=== PATIENT | female | born 1955 | race Caucasian/White ===

== ENCOUNTER 2020-07-18 13:36 | Inpatient (IN) | payer OTHER ==
[2020-07-18] VITALS (7 sets, daily range): BP systolic 125–146; BP diastolic 48–81
[~2020-07-18] VITALS: Ht 147.3 cm; Wt 82.1 kg
[~2020-07-18 13:36] MED LIST: CLIMARA0.0375 MG TRANSDERM; DARVOCET-N 1001 EAC1 PO; EVAMIST8.1 ML TD; LORTAB 5 MG/5001 TAB PO; NORCO 5-325 TA1 EACH PO; PROVERA2.5 MG PO
[2020-07-18 14:21] LABS: ABSOLUTE NEUTROPHILS 5.6 thou/uL (1.4-8.2); BASOPHILS 1.3 % (0.0-2.0); EOSINOPHILS 1.2 % (0.0-3.0); LYMPHOCYTES 15.7 % (24.0-44.0); MCH 19.2 pg (26.0-34.0); MCHC 29.3 g/dL (28.0-37.0); MCV 65.4 fL (80.0-100.0); MONOCYTES 6.2 % (1.0-8.0); PLATELET COUNT 563 thou/uL (150-400); POLYS 75.6 % (36.0-66.0); RBC 2.64 mil/uL (4.20-5.00); RDW 19.2 % (10.5-14.5); WBC 7.3 thou/uL (4.0-11.0)
[2020-07-18 14:24] LABS: HEMATOCRIT 17.3 % (37.0-47.0); HEMOGLOBIN 5.1 gm/dL (12.0-15.0)
[2020-07-18 14:46] LABS: ANISOCYTOSIS 2+; CALCIUM 9.4 mg/dL (8.5-10.1); HYPOCHROMASIA 3+; MICROCYTES 2+; POTASSIUM 4.1 mmol/L (3.5-5.1)
[2020-07-18] MEDS ORDERED: VITAMIN C500 M2 PO (14:50)
[2020-07-18 14:51] LABS: ALBUMIN 3.3 g/dL (3.4-5.0); TOTAL BILIRUBIN 0.3 mg/dL (0.2-1.0); TOTAL PROTEIN 6.9 g/dL (6.4-8.2)
[2020-07-18 15:29] LABS: OBSERVED RETIC COUNT 3.29 % (0.6-2.6)
[2020-07-18 15:31] LABS: % SATURATION 2 % (20-39); IRON 8 ug/dL (50-170); TIBC 349 ug/dL (250-450)
[2020-07-18 15:58] LABS: TSH 1.455 uIU/mL (0.358-3.740)
[2020-07-18 16:25] LABS: FOLIC ACID 36.1 ng/mL (8.6-58.9)
--- NOTE | 2020-07-18 19:39 | NUR ---
Admitted from ER due to weakness, fatigue and low hemoglobin; transferred to room safely. A+Ox4. On room air. Vital signs stable. Admission history, education and assessment done; admission forms signed. On MS, not on telemetry. On regular diet- tolerated well, no nausea, no vomiting and no abdominal pain noted. Skin intact. With SL at R AC- intact and flushing well. Falls bundle in place. Continent of bowel and bladder, able to go to the toilet with standby assist. No complaints of chest pain, crushing sensation and heaviness. With order for 2 units packed RBC for transfusion, called blood bank- 2 units available; consent signed from ER. 1st unit blood transfusion started as per protocol, pt educated re: adverse reactions of blood transfusion- to be reported to staff if she is feeling any of it. retail shift manager nurse informed re: ongoing 1st unit blood transfusion, time started, 2unit blood available at blood bank, ordered Iron sucrose not yet given- prioritized blood transfusion for now. To continue monitoring patient.
[2020-07-19 04:01] VITALS: BP 143/65
--- NOTE | 2020-07-19 04:16 | NUR ---
PATIENT ALERT AND ORIENTED X4. THIS NURSE FINISHED FIRST UNIT OF BLOOD FROM THE AM AND INFUSED THE SECOND UNIT OF BLOOD ON THE FREELANCE WRITER. PATIENT UP WITH SBA IN ROOM. MEDIUM STOOL OVERNIGHT. DENIES PAIN. COOPERATIVE AND PLEASANT. WILL MONITOR.
[2020-07-19 05:31] LABS: MCH 22.4 pg (26.0-34.0); MCHC 31.8 g/dL (28.0-37.0); RBC 3.41 mil/uL (4.20-5.00); RDW 23.2 % (10.5-14.5); WBC 7.9 thou/uL (4.0-11.0)
[2020-07-19 05:46] LABS: HEMOGLOBIN 7.6 gm/dL (12.0-15.0); MCV 70.5 fL (80.0-100.0)
[2020-07-19 06:11] LABS: ALBUMIN 2.9 g/dL (3.4-5.0); CALCIUM 8.7 mg/dL (8.5-10.1); CREATININE 0.9 mg/dL (0.6-1.0); POTASSIUM 4.1 mmol/L (3.5-5.1); TOTAL BILIRUBIN 0.6 mg/dL (0.2-1.0); TOTAL PROTEIN 6.2 g/dL (6.4-8.2)
[2020-07-19 07:21] VITALS: BP 144/68
[2020-07-19 10:16] VITALS: BP 144/68
[2020-07-19 11:22] LABS: URINE BILIRUBIN NEGATIVE (Negative); URINE BLOOD NEGATIVE (Negative); URINE CLARITY CLEAR; URINE COLOR YELLOW; URINE GLUCOSE-RANDOM* NEGATIVE (Negative); URINE KETONES NEGATIVE (Negative); URINE NITRITE-REFLEX NEGATIVE (Negative); URINE PROTEIN (DIPSTICK) NEGATIVE (Negative); URINE SPECIFIC GRAVITY 1.015 (1.005-1.035); URINE UROBILINOGEN 0.2 E.U./dl (0.2-1.0)
[2020-07-19 11:24] LABS: URINE LEUKOCYTES-REFLEX 1+ (Negative)
--- NOTE | 2020-07-19 13:16 | NUR ---
Received awake on bed. Due medications given as prescribed. A+Ox4. On room air. Vital signs stable. Assisted in ADLs. Not on telemetry, no complaints of chest pain, crushing sensation and heaviness. Continent of bowel and bladder, able to go to the toilet with standby assist and gait belt. With SL at R AC, on IV iron- given as prescribed. On regular diet- tolerating well; no nausea, no vomiting and no abdominal pain noted. Falls bundle in place. Pt seen and examined by Dr Matias, discharge orders made- pt informed. Discharge instructions and follow up schedule given and instructed. Discharge forms signed. IV discontinued. Pt discharged from the unit with her personal belongings via wheelchair. Pt discharged.
[2020-07-19 13:21] LABS: CASTS None Seen /LPF (None Seen); SQUAMOUS 0-3 Few /LPF (0-3)
[2020-07-19 13:22] LABS: BACTERIA-REFLEX None Seen /HPF (None Seen); CRYSTALS None Seen /LPF (None Seen); URINE RBC None Seen /HPF (0-2); URINE WBC-REFLEX 0-5 Rare /HPF (0-5)
== END 2020-07-19 13:21 | disposition home or self-care (01) | DRG 812 ==
LOC: ER 13:36 → EROBS 15:41 → 4W 15:41
PROVIDERS: Nurse Practitioner; Physician Assistant; ADMIT Hospitalist; ATTEND Hospitalist
PROC: 30233N1 Transfusion of Nonautologous Red Blood Cells into Peripheral Vein, Percutaneous Approach (ICD-10-PCS; principal; 2020-07-18)
DX: D50.9 Iron deficiency anemia, unspecified (principal); K21.9 Gastro-esophageal reflux disease without esophagitis; R53.83 Other fatigue; Z96.641 Presence of right artificial hip joint; Z90.49 Acquired absence of other specified parts of digestive tract; Z79.899 Other long term (current) drug therapy; Z88.7 Allergy status to serum and vaccine; Z91.09 Other allergy status, other than to drugs and biological substances; Z72.89 Other problems related to lifestyle
CPT/HCPCS: 10040

== ENCOUNTER 2021-10-23 16:36 | Inpatient (IN) | payer OTHER ==
[2021-10-23] VITALS (7 sets, daily range): BP systolic 123–156; BP diastolic 58–70
[~2021-10-23] VITALS: Ht 149.9 cm; Wt 80.7 kg
[~2021-10-23 16:36] MED LIST changes: +VITAMIN C500 M2 PO
[2021-10-23 17:30] LABS: MCH 16.6 pg (26.0-34.0); MCHC 27.7 g/dL (28.0-37.0); PLATELET COUNT 464 thou/uL (150-400); RBC 2.71 mil/uL (4.20-5.00); RDW 21.2 % (10.5-14.5); WBC 6.3 thou/uL (4.0-11.0)
[2021-10-23 17:37] LABS: CALCIUM 8.5 mg/dL (8.5-10.1); CREATININE 1.3 mg/dL (0.6-1.0); POTASSIUM 4.5 mmol/L (3.5-5.1)
[2021-10-23 17:41] LABS: HEMATOCRIT 16.2 % (37.0-47.0); HEMOGLOBIN 4.5 gm/dL (12.0-15.0)
[2021-10-23 17:51] LABS: ALBUMIN 3.1 g/dL (3.4-5.0); TOTAL BILIRUBIN 0.2 mg/dL (0.2-1.0); TOTAL PROTEIN 6.4 g/dL (6.4-8.2)
[2021-10-23 18:13] LABS: ABSOLUTE NEUTROPHILS 4.9 thou/uL (1.4-8.2); INR 0.95; PROTIME 10.4 Seconds (10.5-12.1)
[2021-10-23 18:15] LABS: ANISOCYTOSIS 2+; MACROCYTES 1+; MICROCYTES 1+; POLYCHROMASIA OCCASIONAL
[2021-10-23 18:16] LABS: HYPOCHROMASIA 3+; LARGE PLATELETS FEW; OVALOCYTES FEW; SCHISTOCYTES FEW
[2021-10-23] MEDS ORDERED: NOHOMEMEDICATIONS (18:25)
[2021-10-23 18:45] LABS: FOLIC ACID 19.8 ng/mL (8.6-58.9)
--- NOTE | 2021-10-23 18:45 | NUR ---
PT ADNITTED TO ROOM 205 AT THIS TIME. BED LOW AND LOCKED, SIDE RAILS UPX3, CALL LIGHT IN REACH, TELE APPLIES, PRBCS INFUSING. WILL REPORT OF TO NIGHT RN.
[2021-10-24 03:17] LABS: HEMATOCRIT 24.9 % (37.0-47.0); MCH 20.7 pg (26.0-34.0); MCHC 29.6 g/dL (28.0-37.0); RBC 3.56 mil/uL (4.20-5.00); RDW 32.4 % (10.5-14.5)
[2021-10-24 03:40] LABS: CALCIUM 8.4 mg/dL (8.5-10.1); POTASSIUM 4.3 mmol/L (3.5-5.1)
[2021-10-24 03:43] VITALS: BP 149/70
[2021-10-24 04:25] LABS: HEMOGLOBIN 7.4 gm/dL (12.0-15.0); MCV 69.9 fL (80.0-100.0)
--- NOTE | 2021-10-24 07:26 | NUR ---
Assumed care at 1900 on 10/23/21. Pt A&0 X 4. afebrile. no c/o of pain. adm assessment, hx and education completed. 2 units of blood transfused. Hgb recheck = 7.4 at 0245hrs. Patient progressing towards plan of care as evidenced by increased Hgb. GI consult called
[2021-10-24 07:35] VITALS: BP 136/60
[2021-10-24] MEDS ORDERED: IRON325 M1 PO (09:30)
--- NOTE | 2021-10-24 10:00 | NUR ---
WAS NOTIFIED BY ORGAN RECOVERY COORDINATOR THAT DR DANIEL WAS WANTING TO DC PT WHO WAS ADMITTED YESTERDAY 10/23 AT 1843 AND WANTED TO KNOW IF HE SHOULD MAKE IT A OBSERVATION PT. I, REACHED OUT TO MGR JEAN-CLAUDE COLLAZO SHE SAID TO LET DR DANIEL KNOW THAT PT IS A 1 DAY MEDICARE I, SPOKE WITH DR DANIEL AND LET HIM KNOW THIS PT NEEDS A MRI BUT CAN DO THAT OUTPT AND IT IS NOT WORKING TODAY. SO, DC BUNCH MAKER HAND RELAYED THE MESSAGE AND DR DANIEL IS AWARE PT IS MEDICARE INSURANCE.
[2021-10-24 11:20] VITALS: BP 136/60
--- NOTE | 2021-10-24 12:40 | NUR ---
PT IS AXOX4, PLEASANT; VSS, AFEBRILE, SR ON THE MONITOR. PT HGB 7.4 THIS AM AFTER RECEIVING RBC PREVIOUS SHIFTS. ONE DOSE OF IRON GIVEN THIS AM. DR DANIEL CONSULTED. PT TO D/C HOME THIS PM. HOME RX IRON EXPLAINED, ALONG WITH EDUCATION ON IRON RICH DIET AND IMPORTANCE OF VIT C, BM CHANGES WITH IRON. PT COMMUNICATED UNDERSTANDING. PT/OT CONSULTED, EVALUATED; NO CONCERNS. NO CONCERNS AT THIS TIME.
--- NOTE | 2021-10-25 14:31 | HC ---
[facility] [place] [address] CONSULTATION Name: YESSENIA VIGIL Room #: [facility] IN M.R.#: [id number] Admission: 10/23/21 Attend Phys: Ruddy Hoyt MD Discharge: 10/24/21 Date of : 51 Report #: [id number] THIS REPORT FOR: cc: NO FAMILY PHYSICIAN or PCP NO FAMILY PHYSICIAN or PCP Rogelio Mensah MD ~ cc: Ruddy Hoyt MD DATE OF SERVICE: 10/24/2021 HISTORY OF PRESENT ILLNESS: The patient is a 65-year-old female who was admitted with generalized fatigue and shortness of breath yesterday through the Emergency Room, she was noted to be severely anemic with a hemoglobin of 4.5. She was transfused 2 units yesterday. Her hemoglobin today is 7.4. She had a similar hospitalization last year for severe anemia and was advised to have an EGD and colonoscopy, which she never did have. She states her last colonoscopy was at least 10 years ago, upper endoscopy was probably about that same time, her first colonoscopy was age 48. She states it was normal then she had a followup 6 or 7 years later and reportedly had colitis that was mild, but was not treated with any medications to her knowledge. She does report a small amount of bright red blood per rectum with wiping at times. She does report some mild constipation, has added fiber to her diet. She denies any melena or maroon stools. She denies any significant amount of bleeding. She takes NSAIDs approximately two times per week. She denies any heartburn symptoms. No dysphagia. No nausea or vomiting. No abdominal pain. Her weight has been stable. In fact, she has been gaining weight. She used to give blood on a regular basis. She tried giving blood in 11/2020. Reportedly, her hemoglobin was 8.1, at that time was unable to give blood. No family history of colon cancer or inflammatory bowel disease. She is feeling much better today. She would like to go home and then do the procedures as an outpatient in the near future. Currently, denies any chest pain, shortness of breath. No fevers or chills. PAST MEDICAL HISTORY: Anemia. Previous hip replacement. She has had a cholecystectomy in 2001, had a collapsed lung in 2009. ALLERGIES: TO INFLUENZA VACCINE AND TAPE. REVIEW OF SYSTEMS: As per HPI. HOME MEDICATIONS: None. FAMILY HISTORY: Negative for colon cancer or inflammatory bowel disease. SOCIAL HISTORY: She denies any tobacco use. [place] [address] CONSULTATION Name: YESSENIA VIIGL Room #: [facility] IN ..#: [id number] Admission: 10/23/21 Attend Phys: Ruddy Hoyt MD Discharge: 10/24/21 Date of : 51 Report #: [id number] PHYSICAL EXAMINATION: VITAL SIGNS: Temperature is 36.6, blood pressure is 136/60, pulse 86, respiratory rate is 16. GENERAL: She is alert and oriented x3, in no acute distress. HEENT: Sclerae nonicteric. Oropharynx clear. NECK: Supple, without lymphadenopathy. CARDIOVASCULAR: Regular rate and rhythm. CHEST: Clear to auscultation bilaterally. ABDOMEN: Soft, obese, nontender, nondistended. Normoactive bowel sounds. EXTREMITIES: No cyanosis, clubbing or edema. LABORATORY DATA: WBC is 8.0, hemoglobin 7.4 after 2 units, MCV 69.9, platelet count is 402. INR 0.95. Sodium 141, potassium 4.3, chloride 108, bicarbonate 22, BUN 18, creatinine 1.0, glucose 95, calcium 8.4. Ferritin yesterday was 16, total bilirubin 0.2, AST 17, ALT 22, alkaline phosphatase 123. Troponin 5, total protein 6.4, albumin 3.1. Vitamin B12 260. Folate 19.8. COVID was negative. Stool has been ordered for occult blood, but is pending receipt at this time. Chest x-ray yesterday shows normal chest, reveals large hiatal hernia, moderate chronic lung changes. No acute chest process. ASSESSMENT AND PLAN: Severe microcytic anemia. The patient only reports a small amount of bright red blood per rectum at times. Denies any melanotic stools. This appears to be fairly chronic. She presented the same way last year, was told to have EGD and colonoscopy and this was never performed. I stressed to the patient we need to perform endoscopy in the near future. I do believe she is stable to be able to discharge home. Now that she has been transfused. She also received an iron transfusion. I would recommend doing endoscopy as an outpatient in the near future. She would like this and she would like to go home today. We will make further recommendations after endoscopy, may need to consider stool Hemoccult testing at home as well. We will repeat hemoglobin level in the next few days as an outpatient. Thank you for allowing me to participate in her care. Of note, I gave the patient my name and office number. We will also have our office contact her in order to schedule endoscopy in the near future. <ELECTRONICALLY SIGNED> By: Rogelio Menash MD 10/25/21 [id number] Rogelio Mensah MD /[email or web address]
== END 2021-10-24 13:10 | disposition home or self-care (01) | DRG 811 ==
LOC: ER 16:36 → EROBS 18:07 → 2N 19:37
PROVIDERS: Physician Assistant; ADMIT Hospitalist; ATTEND Hospitalist
PROC: 30233N1 Transfusion of Nonautologous Red Blood Cells into Peripheral Vein, Percutaneous Approach (ICD-10-PCS; principal; 2021-10-23)
DX: D50.9 Iron deficiency anemia, unspecified (principal); N17.0 Acute kidney failure with tubular necrosis; Z20.822 Contact with and (suspected) exposure to COVID-19; Z96.641 Presence of right artificial hip joint; Z90.49 Acquired absence of other specified parts of digestive tract; Z88.7 Allergy status to serum and vaccine; Z91.09 Other allergy status, other than to drugs and biological substances; Z79.899 Other long term (current) drug therapy
CPT/HCPCS: 10081